=== PATIENT | male | born 1960 | race American Indian/Alaskan Native ===

== ENCOUNTER → 2017-03-07 | Outpatient (CLI) | payer MEDICARE, MEDICAID ==
[~2017-03-07] MED LIST: ASPI-515 PO; CEFD300C2 PO; CEPH-368 PO; FLEC50TA25 PO; HYDR25CA PO; INSU100V8 SQ; LEVO750P2 IV; MAGN400T26 PO; METO25TA35 PO; OXYC-302 PO; VANC1VIA3 IV; insulin
[2017-03-07 11:14] LABS: ASPARTATE AMINO TRANSFERASE 31 U/L (15-37); BLOOD UREA NITROGEN 11 mg/dL (7-18)
== END | disposition home or self-care (01) ==
LOC: STAR 08:13
PROVIDERS: ATTEND Urology
DX: Z01.818 Encounter for other preprocedural examination (principal); N21.0 Calculus in bladder
CPT/HCPCS: 36415; 80053

== ENCOUNTER 2017-03-11 11:34 | Day surgery (SDC) | payer MEDICARE, MEDICAID ==
[~2017-03-11] VITALS: Ht 182.9 cm; Wt 96.4 kg
[2017-03-11 12:13] VITALS: BP 89/62
[2017-03-11] MEDS ORDERED: LACTATED RINGERS 1,000 ML IV SCH (12:19)
[2017-03-11] MEDS ORDERED: LIDOCAINE 1%, 2ML SQ PRN (12:30)
[2017-03-11] MEDS ORDERED: MIDAZOLAM 1 MG/ML, 2ML ONE (13:33)
[2017-03-11] MEDS ORDERED: FENTANYL PF 250 MCG/5ML ONE (13:34)
[2017-03-11] MEDS ORDERED: PROPOFOL 10 MG/ML, 20ML ONE (13:49)
[2017-03-11] MEDS ORDERED: PROPOFOL 10 MG/ML, 50ML ONE (13:49)
[2017-03-11] MEDS ORDERED: ONDANSETRON 2MG/ML, 2ML ONE (13:49)
[2017-03-11] MEDS ORDERED: LABETALOL 5MG/ML, 20ML ONE (13:49)
[2017-03-11] MEDS ORDERED: hydrALAzine 20 MG/ML, 1ML ONE (13:49)
[2017-03-11] MEDS ORDERED: HYDROmorphone 1 MG/ML, 1ML IV PRN (14:30)
[2017-03-11] MEDS ORDERED: ACETAMINOPHEN 325 MG TABLET PO PRN (14:30)
[2017-03-11] MEDS ORDERED: ALBUTEROL/IPRATROPIUM 2.5MG/0.5MG, 3 ML NPPB PRN (14:30)
[2017-03-11] MEDS ORDERED: PROMETHAZINE 25 MG/ML, 1ML IV PRN (14:30)
[2017-03-11] MEDS ORDERED: OXYcodone 5 MG/5 ML ORAL.SOL UDC PO PRN (14:30)
[2017-03-11] MEDS ORDERED: ONDANSETRON 2MG/ML, 2ML IVPush PRN (14:30)
[2017-03-11] MEDS ORDERED: LABETALOL 5MG/ML, 20ML IV PRN (14:30)
[2017-03-11] MEDS ORDERED: MIDAZOLAM 1 MG/ML, 2ML IV PRN (14:30)
[2017-03-11] MEDS ORDERED: FENTANYL PF 100 MCG/2ML IV PRN (14:30)
[2017-03-11] MEDS ORDERED: MEPERIDINE/PF 25MG/0.5ML IVPush PRN (14:30)
[2017-03-11] MEDS ORDERED: hydrALAzine 20 MG/ML, 1ML IV PRN (14:30)
== END 2017-03-11 17:50 | disposition home or self-care (01) ==
LOC: OUT 11:34
PROVIDERS: ATTEND Urology
DX: N21.0 Calculus in bladder (principal); N39.0 Urinary tract infection, site not specified; N31.9 Neuromuscular dysfunction of bladder, unspecified; I48.91 Unspecified atrial fibrillation; I47.1 Supraventricular tachycardia; Z86.718 Personal history of other venous thrombosis and embolism; Z86.14 Personal history of Methicillin resistant Staphylococcus aureus infection; I10 Essential (primary) hypertension; Z90.49 Acquired absence of other specified parts of digestive tract; Z98.1 Arthrodesis status; Z84.89 Family history of other specified conditions
CPT/HCPCS: 52318; 82962; 88300; C2630; J0360; J2250; J2405; J2704; J3010; 82360; J0696

== ENCOUNTER → 2017-06-13 | Outpatient (CLI) | payer MEDICARE, MEDICAID ==
[~2017-06-13] MED LIST changes: -CEFD300C2 PO; +CEFD300C37 PO; +GADOBUTROL 10 MMOL/10 ML PFS ONE
== END | disposition home or self-care (01) ==
LOC: EDSTATUS 06-09 12:15 → RAD 13:01 → EDSTATUS 13:30
PROVIDERS: ATTEND Family Medicine
DX: L89.42 Pressure ulcer of contiguous site of back, buttock and hip, stage 2 (principal); I87.312 Chronic venous hypertension (idiopathic) with ulcer of left lower extremity; L89.622 Pressure ulcer of left heel, stage 2; L89.612 Pressure ulcer of right heel, stage 2; E11.621 Type 2 diabetes mellitus with foot ulcer; G82.51 Quadriplegia, C1-C4 complete; M81.0 Age-related osteoporosis without current pathological fracture; S63.23 Subluxation of proximal interphalangeal joint of finger; X58.XXXA Exposure to other specified factors, initial encounter; Z79.4 Long term (current) use of insulin; Y93.89 Activity, other specified; Y92.89 Other specified places as the place of occurrence of the external cause; Y99.8 Other external cause status
CPT/HCPCS: 72197; 73720; A9585

== ENCOUNTER → 2017-06-14 | Outpatient (CLI) | payer MEDICARE, MEDICAID ==
[~2017-06-14] MED LIST changes: -GADOBUTROL 10 MMOL/10 ML PFS ONE
[2017-06-14 11:07] LABS: ASPARTATE AMINO TRANSFERASE 69 U/L (15-37); BLOOD UREA NITROGEN 11 mg/dL (7-18)
== END | disposition home or self-care (01) ==
LOC: LAB 09:58
PROVIDERS: ATTEND Family Medicine
DX: L89.42 Pressure ulcer of contiguous site of back, buttock and hip, stage 2 (principal); E11.621 Type 2 diabetes mellitus with foot ulcer; G82.51 Quadriplegia, C1-C4 complete
CPT/HCPCS: 36415; 80053; 83036; 84134; 85025

== ENCOUNTER 2017-09-16 10:01 | Inpatient (IN) | payer MEDICARE, MEDICAID ==
[~2017-09-16] VITALS: Ht 182.9 cm; Wt 104.4 kg
[2017-09-16] MEDS ORDERED: SODIUM CHLORIDE 0.9% 1,000ML IVBOLUS ONE ×2 (10:30→11:00)
[2017-09-16] MEDS ORDERED: ACETAMINOPHEN 500 MG TABLET PO ONE (10:30)
[2017-09-16 10:47] LABS: HEMATOCRIT 41.9 % (39.2-51.8); HEMOGLOBIN 14.3 g/dL (13.7-18.0); WHITE BLOOD COUNT 19.4 x10^3/uL (3.4-10)
[2017-09-16] MEDS ORDERED: ACETAMINOPHEN 500 MG TABLET ONE (10:52)
[2017-09-16] MEDS ORDERED: ONDANSETRON 2MG/ML, 2ML ONE (10:52)
[2017-09-16 11:00] LABS: ASPARTATE AMINO TRANSFERASE 42 U/L (15-37); BLOOD UREA NITROGEN 12 mg/dL (7-18)
[2017-09-16 11:10] LABS: PATH.CAST-FLAG NOT PRESENT; SPERM-FLAG NOT PRESENT; SRC-FLAG NOT PRESENT; XTAL-FLAG NOT PRESENT; YLC-FLAG NOT PRESENT
[2017-09-16] MEDS ORDERED: CEFTRIAXONE PMX 1GM/50ML 50 ML ONE (11:59)
[2017-09-16] MEDS ORDERED: ONDANSETRON 2MG/ML, 2ML IVPush ONE (12:00)
[2017-09-16] MEDS ORDERED: CEFTRIAXONE PMX 1GM/50ML 50 ML IV ONE (12:00)
[2017-09-16 15:42] VITALS: BP 151/122
[2017-09-16] MEDS ORDERED: SODIUM CHLORIDE 0.9% 1,000 ML IV SCH (16:30)
[2017-09-16] MEDS ORDERED: hydrALAzine 20 MG/ML, 1ML IVPush PRN (19:30)
[2017-09-16] MEDS ORDERED: morphine SULFATE 10 MG/ML, 1ML IVPush PRN (19:30)
[2017-09-16] MEDS ORDERED: TEMAZEPAM 15 MG CAPSULE PO PRN (19:30)
[2017-09-16] MEDS ORDERED: OXYcodone IR 5MG TABLET PO PRN (19:30)
[2017-09-16 19:48] VITALS: BP 129/63
[2017-09-16] MEDS ORDERED: ACETAMINOPHEN 325 MG SUPP PR PRN (20:30)
[2017-09-16] MEDS: ONDANSETRON 2MG/ML, 2ML IVPush PRN (22:04)
[2017-09-16] MEDS: FLECAINIDE 50MG TABLET PO SCH (22:05)
[2017-09-16] MEDS: ENOXAPARIN 40 MG/0.4 ML SQ SCH (22:05)
[2017-09-16] MEDS: SODIUM CHLORIDE 0.9% 1,000 ML IV SCH (22:06)
[2017-09-16] MEDS: INSULIN ASPART 100 UNITS/ML, PEN SQ-INSULIN SCH (22:20)
[2017-09-17] MEDS: CEFTRIAXONE PMX 2GM/50ML 50 ML IV SCH (00:15)
[2017-09-17 01:57] VITALS: BP 80/41
[2017-09-17] MEDS: ONDANSETRON 2MG/ML, 2ML IVPush PRN ×3 (04:43→21:17)
[2017-09-17 05:53] LABS: HEMATOCRIT 35.9 % (39.2-51.8); HEMOGLOBIN 12.2 g/dL (13.7-18.0); WHITE BLOOD COUNT 14.3 x10^3/uL (3.4-10)
[2017-09-17 06:13] LABS: ASPARTATE AMINO TRANSFERASE 32 U/L (15-37); BLOOD UREA NITROGEN 13 mg/dL (7-18)
[2017-09-17 06:45] VITALS: BP 117/70
[2017-09-17] MEDS: SODIUM CHLORIDE 0.9% 1,000 ML IV SCH (07:55)
[2017-09-17] MEDS: INSULIN ASPART 100 UNITS/ML, PEN SQ-INSULIN SCH ×4 (08:23→21:17)
[2017-09-17] MEDS: FLECAINIDE 50MG TABLET PO SCH ×2 (08:23→21:17)
[2017-09-17] MEDS ORDERED: POTASSIUM CHLORIDE 20 MEQ TAB.ER.PRT PO ONE (08:30)
[2017-09-17] MEDS ORDERED: MAGNESIUM SULFATE PMX 2GM/50ML 50 ML IV ONE (08:30)
[2017-09-17] MEDS ORDERED: POTASSIUM PHOSPHATE 44 MEQ in SODIUM CHLORIDE 0.9% 500 ML IV ONE (08:30)
[2017-09-17 09:31] LABS: BLOOD UREA NITROGEN 13 mg/dL (7-18)
[2017-09-17] MEDS ORDERED: POLYETHYLENE GLYCOL 17 GM PACKET PO SCH (10:00)
[2017-09-17] MEDS: SODIUM BICARBONATE 8.4% 100 MEQ in DEXTROSE 5% 1,000 ML IV SCH (11:59)
[2017-09-17] MEDS: LACTULOSE 10 GM/15 ML UDC PO SCH ×2 (11:59→21:16)
[2017-09-17 12:35] VITALS: BP 111/58
[2017-09-17] MEDS: SIMETHICONE 125 MG CHEW TAB PO SCH ×2 (16:29→21:16)
[2017-09-17] MEDS ORDERED: hydrALAzine 20 MG/ML, 1ML IVPush PRN (20:30)
[2017-09-17] MEDS ORDERED: morphine SULFATE 10 MG/ML, 1ML IVPush PRN (20:30)
[2017-09-17] MEDS ORDERED: TEMAZEPAM 15 MG CAPSULE PO PRN (20:30)
[2017-09-17 20:36] VITALS: BP 92/42
[2017-09-17] MEDS: ENOXAPARIN 40 MG/0.4 ML SQ SCH (21:16)
[2017-09-17] MEDS: OXYcodone IR 5MG TABLET PO PRN (21:17)
[2017-09-18] MEDS: SODIUM BICARBONATE 8.4% 100 MEQ in DEXTROSE 5% 1,000 ML IV SCH ×2 (00:22→07:00)
[2017-09-18] MEDS: CEFTRIAXONE PMX 2GM/50ML 50 ML IV SCH (00:22)
[2017-09-18 00:41] VITALS: BP 107/49
[2017-09-18] MEDS: OXYcodone IR 5MG TABLET PO PRN (02:03)
[2017-09-18 06:21] LABS: HEMATOCRIT 31.4 % (39.2-51.8); HEMOGLOBIN 10.9 g/dL (13.7-18.0); WHITE BLOOD COUNT 12.7 x10^3/uL (3.4-10)
[2017-09-18 07:11] LABS: BLOOD UREA NITROGEN 11 mg/dL (7-18)
[2017-09-18 08:02] VITALS: BP 100/63
[2017-09-18] MEDS: POLYETHYLENE GLYCOL 17 GM PACKET PO SCH (08:41)
[2017-09-18] MEDS: LACTULOSE 10 GM/15 ML UDC PO SCH ×2 (08:42→21:03)
[2017-09-18] MEDS: FLECAINIDE 50MG TABLET PO SCH ×2 (08:42→21:05)
[2017-09-18] MEDS: SIMETHICONE 125 MG CHEW TAB PO SCH ×4 (08:42→21:05)
[2017-09-18] MEDS: INSULIN ASPART 100 UNITS/ML, PEN SQ-INSULIN SCH ×4 (08:44→20:48)
[2017-09-18] MEDS ORDERED: SODIUM PHOSPHATE 20 MMOL in SODIUM CHLORIDE 0.9% 500 ML IV ONE (10:30)
[2017-09-18] MEDS ORDERED: POTASSIUM CHLORIDE 20 MEQ TAB.ER.PRT PO ONE (10:30)
[2017-09-18] MEDS: NS + 20MEQ KCL 1,000 ML IV SCH (12:14)
[2017-09-18 13:55] VITALS: BP 109/71
[2017-09-18 20:08] VITALS: BP 159/85
[2017-09-18] MEDS: ENOXAPARIN 40 MG/0.4 ML SQ SCH (21:05)
[2017-09-19] MEDS: OXYcodone IR 5MG TABLET PO PRN ×2 (01:01→21:20)
[2017-09-19] MEDS: NS + 20MEQ KCL 1,000 ML IV SCH ×2 (01:01→16:16)
[2017-09-19 03:37] VITALS: BP 118/72
[2017-09-19] MEDS: INSULIN ASPART 100 UNITS/ML, PEN SQ-INSULIN SCH ×4 (07:22→21:20)
[2017-09-19] MEDS: FLECAINIDE 50MG TABLET PO SCH ×2 (07:23→21:19)
[2017-09-19] MEDS: POLYETHYLENE GLYCOL 17 GM PACKET PO SCH (07:23)
[2017-09-19] MEDS: LACTULOSE 10 GM/15 ML UDC PO SCH ×2 (07:23→21:19)
[2017-09-19] MEDS: SIMETHICONE 125 MG CHEW TAB PO SCH ×4 (07:23→21:19)
[2017-09-19 07:25] VITALS: BP 125/82
[2017-09-19 08:41] LABS: BLOOD UREA NITROGEN 6 mg/dL (7-18)
[2017-09-19] MEDS: LEVOFLOXACIN/PMX 750MG/150ML 150 ML IV SCH (10:05)
[2017-09-19 16:40] VITALS: BP 107/74
[2017-09-19 18:58] VITALS: BP 112/78
[2017-09-19] MEDS: ENOXAPARIN 40 MG/0.4 ML SQ SCH (21:20)
[2017-09-20 01:12] VITALS: BP 131/75
[2017-09-20] MEDS: NS + 20MEQ KCL 1,000 ML IV SCH (05:36)
[2017-09-20 05:48] LABS: BLOOD UREA NITROGEN 7 mg/dL (7-18)
[2017-09-20 05:51] LABS: HEMATOCRIT 36.9 % (39.2-51.8); HEMOGLOBIN 12.6 g/dL (13.7-18.0); WHITE BLOOD COUNT 9.3 x10^3/uL (3.4-10)
[2017-09-20] MEDS: SIMETHICONE 125 MG CHEW TAB PO SCH ×2 (07:00→11:00)
[2017-09-20] MEDS: INSULIN ASPART 100 UNITS/ML, PEN SQ-INSULIN SCH ×2 (07:00→11:00)
[2017-09-20 08:10] VITALS: BP 160/83
[2017-09-20] MEDS: LACTULOSE 10 GM/15 ML UDC PO SCH (08:17)
[2017-09-20] MEDS: POLYETHYLENE GLYCOL 17 GM PACKET PO SCH (08:17)
[2017-09-20] MEDS: FLECAINIDE 50MG TABLET PO SCH (09:29)
[2017-09-20] MEDS: LEVOFLOXACIN/PMX 750MG/150ML 150 ML IV SCH (09:29)
[2017-09-20] MEDS ORDERED: LACT10SO5 PO (11:25)
[2017-09-20] MEDS ORDERED: LEVO750T26 PO (11:25)
[2017-09-20] MEDS ORDERED: SIME125T10 PO (11:25)
[2017-09-20] MEDS ORDERED: FLU VACC QS2017-18 (36MOS+) UP/PF 0.5 ML IM-VACC ONE (13:30)
[2017-09-20] MEDS ORDERED: PNEUMOCOCCAL 23 VACCINE IM-VACC ONE (14:30)
== END 2017-09-20 15:28 | disposition home or self-care (01) | DRG 698 ==
LOC: EDSEX 10:01 → ED 12:17 → EDIP 12:18 → MERGE 12:29 → ED 12:29 → 4WST 15:22
PROVIDERS: ADMIT Internal Medicine; ATTEND Hospitalist
PROC: 0T9B70Z Drainage of Bladder with Drainage Device, Via Natural or Artificial Opening (ICD-10-PCS; principal; 2017-09-16)
DX: T83.518A Infection and inflammatory reaction due to other urinary catheter, initial encounter (principal); A41.52 Sepsis due to Pseudomonas; R65.21 Severe sepsis with septic shock; G82.50 Quadriplegia, unspecified; L89.159 Pressure ulcer of sacral region, unspecified stage; N39.0 Urinary tract infection, site not specified; E11.65 Type 2 diabetes mellitus with hyperglycemia; E83.39 Other disorders of phosphorus metabolism; E83.42 Hypomagnesemia; I10 Essential (primary) hypertension; I48.0 Paroxysmal atrial fibrillation; K59.00 Constipation, unspecified; B96.1 Klebsiella pneumoniae [K. pneumoniae] as the cause of diseases classified elsewhere; N31.9 Neuromuscular dysfunction of bladder, unspecified; Y84.6 Urinary catheterization as the cause of abnormal reaction of the patient, or of later complication, without mention of misadventure at the time of the procedure; Z86.14 Personal history of Methicillin resistant Staphylococcus aureus infection; Z90.49 Acquired absence of other specified parts of digestive tract; Z93.2 Ileostomy status; Z93.3 Colostomy status; Z99.3 Dependence on wheelchair; Z87.828 Personal history of other (healed) physical injury and trauma; Z23 Encounter for immunization; Z98.1 Arthrodesis status; Z88.0 Allergy status to penicillin
CPT/HCPCS: 36415; 71010; 74000; 80048; 80053; 81001; 82040; 82962; 83036; 83605; 83735; 84100; 84145; 85025; 87040; 87077; 87086; 87186; 90686; 90732; 93005; 96365; 96375; J0696; J1650; J1815; J1956; J2405; J3480; J7070; J2270; J3475; J7030; J7040

== ENCOUNTER 2017-09-22 22:42 | Inpatient (IN) | payer MEDICARE, MEDICAID ==
[~2017-09-22] VITALS: Ht 185.4 cm; Wt 92.6 kg
[~2017-09-22 22:42] MED LIST changes: +LACT10SO5 PO; +LEVO750T26 PO; +SIME125T10 PO
[2017-09-22] MEDS ORDERED: SODIUM CHLORIDE 0.9% 1,000ML IVBOLUS ONE ×2 (23:00→23:30)
[2017-09-22 23:35] LABS: HEMATOCRIT 45.7 % (39.2-51.8); HEMOGLOBIN 15.3 g/dL (13.7-18.0)
[2017-09-22 23:42] LABS: ASPARTATE AMINO TRANSFERASE 56 U/L (15-37); BLOOD UREA NITROGEN 14 mg/dL (7-18)
[2017-09-23 00:02] LABS: PATH.CAST-FLAG NOT PRESENT; SPERM-FLAG NOT PRESENT; SRC-FLAG NOT PRESENT; XTAL-FLAG NOT PRESENT; YLC-FLAG NOT PRESENT
[2017-09-23] MEDS ORDERED: AZITHROMYCIN 500 MG in SODIUM CHLORIDE 0.9% 250 ML IV ONE (02:30)
[2017-09-23] MEDS ORDERED: CEFTRIAXONE PMX 1GM/50ML 50 ML IV ONE (02:30)
[2017-09-23] MEDS ORDERED: CEFTRIAXONE PMX 1GM/50ML 50 ML ONE (03:06)
[2017-09-23] MEDS ORDERED: DEXTROSE 4 GM TAB.CHEW PO PRN (05:30)
[2017-09-23] MEDS ORDERED: BISACODYL 10 MG SUPP PR PRN (05:30)
[2017-09-23] MEDS ORDERED: VANCOMYCIN PER PHARMACY MC PRN (05:30)
[2017-09-23] MEDS ORDERED: LACTULOSE 10 GM/15 ML UDC PO PRN (05:30)
[2017-09-23] MEDS ORDERED: MAGNESIUM SULFATE PMX 2GM/50ML 50 ML IV ONE (05:30)
[2017-09-23] MEDS ORDERED: GLUCAGON 1 MG IM PRN (05:30)
[2017-09-23] MEDS ORDERED: POLYETHYLENE GLYCOL 17 GM PACKET PO PRN (05:30)
[2017-09-23] MEDS ORDERED: SIMETHICONE 125 MG CHEW TAB PO PRN (05:30)
[2017-09-23] MEDS ORDERED: DOCUSATE 100 MG CAPSULE PO PRN (05:30)
[2017-09-23] MEDS ORDERED: ACETAMINOPHEN 325 MG TABLET PO PRN (05:30)
[2017-09-23] MEDS ORDERED: PROMETHAZINE 25 MG/ML, 1ML IM PRN (05:30)
[2017-09-23] MEDS ORDERED: DEXTROSE 50%, 50ML SYRINGE IVPush PRN (05:30)
[2017-09-23] MEDS ORDERED: PHARMACOKINETIC CONSULTATION MC ONE (06:00)
[2017-09-23] MEDS ORDERED: PHARMACOKINETIC MONITORING MC PRN (06:00)
[2017-09-23 06:11] VITALS: BP 95/68
[2017-09-23 06:31] LABS: HEMATOCRIT 39.4 % (39.2-51.8); HEMOGLOBIN 13.3 g/dL (13.7-18.0); WHITE BLOOD COUNT 10.3 x10^3/uL (3.4-10)
[2017-09-23 06:36] LABS: ASPARTATE AMINO TRANSFERASE 38 U/L (15-37); BLOOD UREA NITROGEN 11 mg/dL (7-18)
[2017-09-23] MEDS: INSULIN ASPART 100 UNITS/ML, PEN SQ-INSULIN SCH ×4 (07:00→20:34)
[2017-09-23 07:27] VITALS: BP 126/75
[2017-09-23] MEDS: SENNA/DOCUSATE TABLET PO SCH (09:00)
[2017-09-23] MEDS: SODIUM CHLORIDE FLUSH 10ML SYR IVF SCH ×2 (09:00→20:33)
[2017-09-23] MEDS: AZTREONAM 2 GM in DEXTROSE 5% 100 ML IV SCH ×2 (09:05→17:00)
[2017-09-23] MEDS: SODIUM CHLORIDE 0.9% 1,000 ML IV SCH ×3 (09:05→20:33)
[2017-09-23] MEDS: LACTOBACILLUS CHEW TABLET PO SCH ×3 (09:16→20:33)
[2017-09-23] MEDS: ENOXAPARIN 40 MG/0.4 ML SQ SCH (09:17)
[2017-09-23] MEDS: FLECAINIDE 50MG TABLET PO SCH ×2 (09:17→20:33)
[2017-09-23] MEDS: VANCOMYCIN 1,900 MG in SODIUM CHLORIDE 0.9% 250 ML IV SCH ×2 (10:01→23:26)
[2017-09-23 12:43] VITALS: BP 118/79
[2017-09-23 18:46] VITALS: BP 97/63
[2017-09-24] MEDS: AZTREONAM 2 GM in DEXTROSE 5% 100 ML IV SCH ×3 (01:22→17:31)
[2017-09-24 01:57] VITALS: BP 103/65
[2017-09-24] MEDS: SODIUM CHLORIDE 0.9% 1,000 ML IV SCH ×2 (05:30→11:23)
[2017-09-24 06:08] LABS: HEMATOCRIT 35.2 % (39.2-51.8); HEMOGLOBIN 11.8 g/dL (13.7-18.0)
[2017-09-24 06:17] LABS: ASPARTATE AMINO TRANSFERASE 36 U/L (15-37); BLOOD UREA NITROGEN 10 mg/dL (7-18)
[2017-09-24 06:53] VITALS: BP 150/96
[2017-09-24] MEDS: INSULIN ASPART 100 UNITS/ML, PEN SQ-INSULIN SCH ×4 (07:00→21:49)
[2017-09-24] MEDS: ENOXAPARIN 40 MG/0.4 ML SQ SCH (08:56)
[2017-09-24] MEDS: SENNA/DOCUSATE TABLET PO SCH (08:57)
[2017-09-24] MEDS: POTASSIUM CHLORIDE 20 MEQ TAB.ER.PRT PO SCH ×2 (08:57→16:35)
[2017-09-24] MEDS: FLECAINIDE 50MG TABLET PO SCH ×2 (08:57→21:47)
[2017-09-24] MEDS: LACTOBACILLUS CHEW TABLET PO SCH ×3 (08:57→21:47)
[2017-09-24] MEDS: SODIUM CHLORIDE FLUSH 10ML SYR IVF SCH ×2 (09:00→21:00)
[2017-09-24] MEDS: VANCOMYCIN 1,900 MG in SODIUM CHLORIDE 0.9% 250 ML IV SCH ×2 (10:03→21:49)
[2017-09-24 12:59] VITALS: BP 149/95
[2017-09-24 19:41] VITALS: BP 97/65
[2017-09-25 01:41] VITALS: BP 121/77
[2017-09-25] MEDS: AZTREONAM 2 GM in DEXTROSE 5% 100 ML IV SCH ×2 (02:02→09:21)
[2017-09-25] MEDS ORDERED: ACID1TAB7 PO (07:41)
[2017-09-25 08:04] VITALS: BP 146/85
[2017-09-25] MEDS: INSULIN ASPART 100 UNITS/ML, PEN SQ-INSULIN SCH (09:00)
[2017-09-25] MEDS: SENNA/DOCUSATE TABLET PO SCH (09:21)
[2017-09-25] MEDS: POTASSIUM CHLORIDE 20 MEQ TAB.ER.PRT PO SCH (09:21)
[2017-09-25] MEDS: FLECAINIDE 50MG TABLET PO SCH (09:21)
[2017-09-25] MEDS: LACTOBACILLUS CHEW TABLET PO SCH (09:21)
[2017-09-25] MEDS: SODIUM CHLORIDE FLUSH 10ML SYR IVF SCH (09:23)
[2017-09-25] MEDS: ENOXAPARIN 40 MG/0.4 ML SQ SCH (09:30)
[2017-09-25] MEDS: VANCOMYCIN 1,900 MG in SODIUM CHLORIDE 0.9% 250 ML IV SCH (10:39)
== END 2017-09-25 14:23 | disposition home or self-care (01) | DRG 871 ==
LOC: ED 23:02 → EDIP 09-23 02:29 → 4WST 09-23 05:27
PROVIDERS: ADMIT Internal Medicine; ATTEND Internal Medicine
DX: A41.52 Sepsis due to Pseudomonas (principal); J15.9 Unspecified bacterial pneumonia; G82.50 Quadriplegia, unspecified; E43 Unspecified severe protein-calorie malnutrition; E87.2 Acidosis; L89.159 Pressure ulcer of sacral region, unspecified stage; E11.9 Type 2 diabetes mellitus without complications; D64.9 Anemia, unspecified; J98.11 Atelectasis; N39.0 Urinary tract infection, site not specified; D75.89 Other specified diseases of blood and blood-forming organs; K59.09 Other constipation; E86.0 Dehydration; N31.9 Neuromuscular dysfunction of bladder, unspecified; B96.1 Klebsiella pneumoniae [K. pneumoniae] as the cause of diseases classified elsewhere; I10 Essential (primary) hypertension; I45.81 Long QT syndrome; I48.2 Chronic atrial fibrillation; R62.7 Adult failure to thrive; Z68.26 Body mass index [BMI] 26.0-26.9, adult; Z79.4 Long term (current) use of insulin; Z86.14 Personal history of Methicillin resistant Staphylococcus aureus infection; Z99.3 Dependence on wheelchair; Z93.2 Ileostomy status; Z93.3 Colostomy status; Z91.14 Patient's other noncompliance with medication regimen; Z90.49 Acquired absence of other specified parts of digestive tract; Z98.1 Arthrodesis status; Z88.0 Allergy status to penicillin
CPT/HCPCS: 36415; 71010; 71275; 74177; 80053; 81001; 82962; 83605; 83735; 84100; 84145; 84443; 85025; 85610; 87040; 87086; 93005; 93306; 96361; 96365; J0456; J0696; J1650; J1815; J3370; J3475; J7030; J7050

== ENCOUNTER → 2018-06-02 | Outpatient (CLI) | payer MEDICARE, MEDICAID ==
[~2018-06-02] MED LIST changes: +ACID1TAB7 PO
== END | disposition home or self-care (01) ==
LOC: RAD 12:25
PROVIDERS: ATTEND Clinical Nurse Specialist Family Health
DX: E11.622 Type 2 diabetes mellitus with other skin ulcer (principal); L89.324 Pressure ulcer of left buttock, stage 4; L89.43 Pressure ulcer of contiguous site of back, buttock and hip, stage 3; G82.51 Quadriplegia, C1-C4 complete
CPT/HCPCS: 72195

== ENCOUNTER 2018-06-14 13:35 | Inpatient (IN) | payer MEDICARE, MEDICAID ==
[~2018-06-14] VITALS: Ht 182.9 cm; Wt 95.5 kg
[2018-06-14] MEDS ORDERED: SODIUM CHLORIDE 0.9% 1,000ML IVBOLUS ONE ×2 (14:30→15:30)
[2018-06-14 14:44] LABS: BASOPHILS # (AUTO) 0.04 x10^3/uL (0-0.1); BASOPHILS % (AUTO) 0 % (0-1); EOSINOPHILS # (AUTO) 0.27 x10^3/uL (0-0.4); EOSINOPHILS % (AUTO) 3 % (1-7); LYMPHOCYTES # (AUTO) 2.32 x10^3/uL (1-3.4); LYMPHOCYTES % (AUTO) 21 % (22-44); MD NO; MEAN CORPUSCULAR HEMOGLOBIN 28.9 pg (27.5-34.5); MEAN PLATELET VOLUME 7.3 fL (7.4-10.4); MONOCYTES # (AUTO) 0.53 x10^3/uL (0.2-0.8); MONOCYTES % (AUTO) 5 % (2-9); NEUTROPHILS # (AUTO) 7.83 x10^3/uL (1.8-6.8); NEUTROPHILS % (AUTO) 71 % (42-75); PLATELET COUNT 278 x10^3/uL (130-400); RED BLOOD COUNT 5.07 x10^6/uL (4.38-5.82); RED CELL DISTRIBUTION WIDTH 15.6 % (9.4-14.8)
[2018-06-14 14:54] LABS: ALANINE AMINOTRANSFERASE 53 U/L (12-78); ALBUMIN 3.4 g/dL (3.4-5.0); ANION GAP 11 mmol/L (5-15); CHLORIDE 100 mmol/L (98-107); CREATININE 0.64 mg/dL (0.7-1.3)
[2018-06-14 14:56] LABS: ALKALINE PHOSPHATASE 145 U/L (45-117); BILIRUBIN,TOTAL 1.1 mg/dL (0.2-1.0); TOTAL PROTEIN 8.7 g/dL (6.4-8.2)
[2018-06-14] MEDS ORDERED: ONDANSETRON 2MG/ML, 2ML ONE (15:21)
[2018-06-14] MEDS ORDERED: CEFTRIAXONE PMX 1GM/50ML 50 ML ONE (15:26)
[2018-06-14] MEDS ORDERED: SODIUM CHLORIDE FLUSH 10ML SYR IVF ONE (15:30)
[2018-06-14] MEDS ORDERED: CEFTRIAXONE 1,000 MG in SODIUM CHLORIDE 0.9% 50 ML IVPB ONE (15:30)
[2018-06-14] MEDS ORDERED: ONDANSETRON 2MG/ML, 2ML IVPush ONE (15:30)
[2018-06-14] MEDS ORDERED: VANCOMYCIN PER PHARMACY MC PRN (16:00)
[2018-06-14] MEDS ORDERED: VANCOMYCIN 2,000 MG in SODIUM CHLORIDE 0.9% 500 ML IV ONE (16:00)
[2018-06-14 16:15] LABS: CULTURE INDICATED? YES; MICROSCOPIC INDICATED
[2018-06-14] MEDS ORDERED: INSU100V8 SQ (16:41)
[2018-06-14] MEDS ORDERED: INSU100C SQ-INSULIN (16:41)
[2018-06-14] MEDS ORDERED: ONDANSETRON 2MG/ML, 2ML IVPush PRN (17:00)
[2018-06-14] MEDS ORDERED: SIMETHICONE 125 MG CHEW TAB PO PRN (17:00)
[2018-06-14] MEDS: SODIUM CHLORIDE 0.9% 1,000 ML IV SCH (18:34)
[2018-06-14] MEDS: LACTOBACILLUS CHEW TABLET PO SCH ×2 (18:34→20:38)
[2018-06-14] MEDS: ENOXAPARIN 40 MG/0.4 ML SQ SCH (18:34)
[2018-06-14 19:32] VITALS: BP 96/63
[2018-06-14] MEDS: ACETAMINOPHEN 325 MG TABLET PO PRN (20:38)
[2018-06-14] MEDS: FLECAINIDE 50MG TABLET PO SCH (20:38)
[2018-06-14] MEDS: INSULIN GLARGINE 100 UNITS/ML, PEN SQ-INSULIN SCH (22:10)
[2018-06-14] MEDS: INSULIN LISPRO 100 UNITS/ML, PEN SQ-INSULIN SCH (22:11)
[2018-06-14 22:13] VITALS: BP 96/63
[2018-06-15 00:20] LABS: CLOSTRIDIUM DIFFICILE ANTIGEN NEGATIVE; CLOSTRIDIUM DIFFICILE TOXIN NEGATIVE (Negative)
[2018-06-15 00:54] VITALS: BP 95/60
[2018-06-15] MEDS: SODIUM CHLORIDE 0.9% 1,000 ML IV SCH ×4 (01:03→20:15)
[2018-06-15 06:40] LABS: ALANINE AMINOTRANSFERASE 36 U/L (12-78); ALBUMIN 2.6 g/dL (3.4-5.0); ANION GAP 8 mmol/L (5-15); CALCIUM 7.6 mg/dL (8.5-10.1); CHLORIDE 116 mmol/L (98-107); CREATININE 0.36 mg/dL (0.7-1.3)
[2018-06-15 06:43] VITALS: BP 108/72
[2018-06-15 06:43] LABS: ALKALINE PHOSPHATASE 114 U/L (45-117); BILIRUBIN,TOTAL 0.5 mg/dL (0.2-1.0); TOTAL PROTEIN 6.6 g/dL (6.4-8.2)
[2018-06-15 07:43] LABS: BASOPHILS # (AUTO) 0.04 x10^3/uL (0-0.1); BASOPHILS % (AUTO) 1 % (0-1); EOSINOPHILS # (AUTO) 0.25 x10^3/uL (0-0.4); EOSINOPHILS % (AUTO) 3 % (1-7); LYMPHOCYTES # (AUTO) 1.88 x10^3/uL (1-3.4); LYMPHOCYTES % (AUTO) 25 % (22-44); MD NO; MEAN CORPUSCULAR HEMOGLOBIN 28.7 pg (27.5-34.5); MEAN CORPUSCULAR HGB CONC 33.6 g/dL (33.2-36.2); MEAN CORPUSCULAR VOLUME 85.4 fL (81-97); MEAN PLATELET VOLUME 7.7 fL (7.4-10.4); MONOCYTES # (AUTO) 0.43 x10^3/uL (0.2-0.8); MONOCYTES % (AUTO) 6 % (2-9); NEUTROPHILS # (AUTO) 4.84 x10^3/uL (1.8-6.8); NEUTROPHILS % (AUTO) 65 % (42-75); PLATELET COUNT 203 x10^3/uL (130-400); RED BLOOD COUNT 4.42 x10^6/uL (4.38-5.82)
[2018-06-15] MEDS: INSULIN LISPRO 100 UNITS/ML, PEN SQ-INSULIN SCH ×4 (08:39→20:20)
[2018-06-15] MEDS: CEFTRIAXONE 1,000 MG in SODIUM CHLORIDE 0.9% 50 ML IV SCH (08:40)
[2018-06-15] MEDS: FLECAINIDE 50MG TABLET PO SCH ×2 (08:40→20:10)
[2018-06-15] MEDS: LACTOBACILLUS CHEW TABLET PO SCH ×3 (08:40→20:10)
[2018-06-15 13:35] VITALS: BP 131/84
[2018-06-15] MEDS: ENOXAPARIN 40 MG/0.4 ML SQ SCH (17:49)
[2018-06-15 20:00] VITALS: BP 155/96
[2018-06-15] MEDS: ACETAMINOPHEN 325 MG TABLET PO PRN (20:10)
[2018-06-15] MEDS: INSULIN GLARGINE 100 UNITS/ML, PEN SQ-INSULIN SCH (20:21)
[2018-06-16 01:18] VITALS: BP 131/81
[2018-06-16] MEDS: SODIUM CHLORIDE 0.9% 1,000 ML IV SCH (05:22)
[2018-06-16] MEDS: INSULIN LISPRO 100 UNITS/ML, PEN SQ-INSULIN SCH (07:00)
[2018-06-16 07:21] VITALS: BP 137/77
[2018-06-16] MEDS: FLECAINIDE 50MG TABLET PO SCH (09:01)
[2018-06-16] MEDS: CEFTRIAXONE 1,000 MG in SODIUM CHLORIDE 0.9% 50 ML IV SCH (09:01)
[2018-06-16] MEDS: LACTOBACILLUS CHEW TABLET PO SCH (09:01)
[2018-06-16] MEDS ORDERED: CIPR500T87 PO (09:17)
== END 2018-06-16 10:59 | disposition home health service (06) | DRG 871 ==
LOC: ED 15:48 → EDIP 16:28 → 3NE 17:42
PROVIDERS: ADMIT Hospitalist; ATTEND Hospitalist
PROC: 0T9B70Z Drainage of Bladder with Drainage Device, Via Natural or Artificial Opening (ICD-10-PCS; principal; 2018-06-14)
DX: A41.9 Sepsis, unspecified organism (principal); R53.2 Functional quadriplegia; E43 Unspecified severe protein-calorie malnutrition; T83.511A Infection and inflammatory reaction due to indwelling urethral catheter, initial encounter; D63.8 Anemia in other chronic diseases classified elsewhere; N31.9 Neuromuscular dysfunction of bladder, unspecified; E86.9 Volume depletion, unspecified; I48.91 Unspecified atrial fibrillation; Y84.6 Urinary catheterization as the cause of abnormal reaction of the patient, or of later complication, without mention of misadventure at the time of the procedure; E11.9 Type 2 diabetes mellitus without complications; I10 Essential (primary) hypertension; L89.159 Pressure ulcer of sacral region, unspecified stage; N30.90 Cystitis, unspecified without hematuria; R65.20 Severe sepsis without septic shock; Z93.3 Colostomy status; Z87.891 Personal history of nicotine dependence; Z99.3 Dependence on wheelchair; Y92.89 Other specified places as the place of occurrence of the external cause; Z79.4 Long term (current) use of insulin; Z86.14 Personal history of Methicillin resistant Staphylococcus aureus infection; Z98.1 Arthrodesis status; Z88.0 Allergy status to penicillin; Z68.28 Body mass index [BMI] 28.0-28.9, adult
CPT/HCPCS: 36415; 71045; 80053; 81001; 82962; 83605; 83735; 84100; 85025; 87040; 87046; 87070; 87077; 87086; 87186; 87205; 87324; 87427; 93005; 96361; 96365; 96367; 96375; 99291; J0696; J1650; J2405; J3370; J1815; J7030; J7040

== ENCOUNTER 2019-01-16 11:02 | Inpatient (IN) | payer MEDICARE, MEDICAID ==
[~2019-01-16] VITALS: Ht 182.9 cm; Wt 88.7 kg
[~2019-01-16 11:02] MED LIST changes: +ACET325T14 PO; +APIX5TAB PO; +CEFP200T PO; +CIPR500T87 PO; +DOCU-131 PO; +INSU100C SQ-INSULIN; +INSU100I11 SQ-INSULIN; +INSU100I13 SQ-INSULIN; +POLY17PO5 PO
[2019-01-16] MEDS ORDERED: PLEASE ENTER HEIGHT AND WEIGHT MC SCH (11:30)
[2019-01-16] MEDS ORDERED: SODIUM CHLORIDE FLUSH 10ML SYR IVF ONE ×2 (11:30→14:00)
--- NOTE | 2019-01-16 12:00 | NUR ---
PT RESTING IN BED, WILL CLAMP SUPRA PUBIC CATH AND SEND URINE. WOUND VAC IN PLACE WITH BATTERY UNTIL THIS EVENING CONT TO MEET NURSING NEEDS NEEDED
[2019-01-16 12:03] LABS: BASOPHILS # (AUTO) 0.06 x10^3/uL (0-0.1); BASOPHILS % (AUTO) 1 % (0-1); EOSINOPHILS % (AUTO) 5 % (1-7); LYMPHOCYTES # (AUTO) 1.68 x10^3/uL (1-3.4); LYMPHOCYTES % (AUTO) 19 % (22-44); MD NO; MEAN CORPUSCULAR HEMOGLOBIN 27.8 pg (27.5-34.5); MEAN CORPUSCULAR HGB CONC 33.7 g/dL (33.2-36.2); MEAN CORPUSCULAR VOLUME 82.5 fL (81-97); MEAN PLATELET VOLUME 7.1 fL (7.4-10.4); MONOCYTES # (AUTO) 0.43 x10^3/uL (0.2-0.8); MONOCYTES % (AUTO) 5 % (2-9); NEUTROPHILS # (AUTO) 6.33 x10^3/uL (1.8-6.8); NEUTROPHILS % (AUTO) 71 % (42-75); PLATELET COUNT 393 x10^3/uL (130-400); RED BLOOD COUNT 4.43 x10^6/uL (4.38-5.82); RED CELL DISTRIBUTION WIDTH 15.3 % (9.4-14.8)
[2019-01-16 12:05] LABS: ALANINE AMINOTRANSFERASE 36 U/L (12-78); ALBUMIN 2.9 g/dL (3.4-5.0); ANION GAP 7 mmol/L (5-15); CALCIUM 8.7 mg/dL (8.5-10.1); CHLORIDE 110 mmol/L (98-107); CREATININE 0.45 mg/dL (0.7-1.3)
[2019-01-16 12:07] LABS: ALKALINE PHOSPHATASE 93 U/L (45-117); BILIRUBIN,TOTAL 0.3 mg/dL (0.2-1.0)
--- NOTE | 2019-01-16 12:59 | NUR ---
RECEIVED REPORT FROM DARRIN ROY
[2019-01-16 13:07] LABS: CULTURE INDICATED? YES; MICROSCOPIC INDICATED
[2019-01-16] MEDS ORDERED: ONDANSETRON ODT 4 MG PO PRN (14:30)
[2019-01-16] MEDS ORDERED: LABETALOL 5MG/ML, 20ML IV PRN (14:30)
[2019-01-16] MEDS ORDERED: ONDANSETRON 2MG/ML, 2ML IVPush PRN (14:30)
[2019-01-16] MEDS ORDERED: morphine SULFATE 10 MG/ML, 1ML IVPush PRN (14:30)
--- NOTE | 2019-01-16 14:34 | NUR ---
MULTIPLE ATTEMPTS FOR IV INSERTION, UNSUCCESSFUL. ULTRASOUND IV STARTED,LEFT ARM. IV ANTIBIOTICS STARTED. BLOOD CULTURES HAVE BEEN DRAWN.
[2019-01-16] MEDS: ERTAPENEM 1 GM in SODIUM CHLORIDE 0.9% 50 ML IV SCH ×2 (14:35→14:36)
--- NOTE | 2019-01-16 14:51 | NUR ---
REPORT GIVEN TO TEJAS ROY
[2019-01-16 15:15] VITALS: BP 150/99
[2019-01-16 15:17] VITALS: BP 150/90
[2019-01-16 15:26] LABS: FREE T4 (FREE THYROXINE) 1.39 ng/dL (0.76-1.46)
[2019-01-16] MEDS: SODIUM CHLORIDE 0.9% 1,000 ML IV SCH ×2 (16:27→22:15)
[2019-01-16 19:11] VITALS: BP 144/86
[2019-01-16] MEDS ORDERED: ACETAMINOPHEN 325 MG TABLET ONE (21:45)
[2019-01-16] MEDS: ACETAMINOPHEN 325 MG TABLET PO PRN (21:50)
[2019-01-16] MEDS: ENOXAPARIN 40 MG/0.4 ML SQ SCH (21:50)
[2019-01-17 01:39] VITALS: BP 139/77
[2019-01-17 05:33] LABS: BASOPHILS # (AUTO) 0.03 x10^3/uL (0-0.1); BASOPHILS % (AUTO) 0 % (0-1); EOSINOPHILS # (AUTO) 0.35 x10^3/uL (0-0.4); EOSINOPHILS % (AUTO) 4 % (1-7); LYMPHOCYTES # (AUTO) 2.04 x10^3/uL (1-3.4); LYMPHOCYTES % (AUTO) 23 % (22-44); MD NO; MEAN CORPUSCULAR HEMOGLOBIN 27.2 pg (27.5-34.5); MEAN CORPUSCULAR VOLUME 82.5 fL (81-97); MEAN PLATELET VOLUME 7.2 fL (7.4-10.4); MONOCYTES # (AUTO) 0.65 x10^3/uL (0.2-0.8); MONOCYTES % (AUTO) 7 % (2-9); NEUTROPHILS % (AUTO) 65 % (42-75); PLATELET COUNT 372 x10^3/uL (130-400); RED BLOOD COUNT 4.53 x10^6/uL (4.38-5.82); RED CELL DISTRIBUTION WIDTH 14.9 % (9.4-14.8)
[2019-01-17 05:36] LABS: CHLORIDE 112 mmol/L (98-107)
[2019-01-17 05:52] LABS: ALANINE AMINOTRANSFERASE 35 U/L (12-78); ALKALINE PHOSPHATASE 90 U/L (45-117); ANION GAP 7 mmol/L (5-15); BILIRUBIN,TOTAL 0.3 mg/dL (0.2-1.0); CALCIUM 8.5 mg/dL (8.5-10.1); CREATININE 0.44 mg/dL (0.7-1.3); TOTAL PROTEIN 8.8 g/dL (6.4-8.2)
[2019-01-17] MEDS ORDERED: POTASSIUM CHLORIDE 20 MEQ TAB.ER.PRT PO ONE ×2 (07:00)
[2019-01-17 07:36] VITALS: BP 148/95
[2019-01-17] MEDS: PANTOPRAZOLE 40 MG IV IVPush SCH (07:39)
[2019-01-17] MEDS: SODIUM CHLORIDE 0.9% 1,000 ML IV SCH ×2 (07:54→14:49)
[2019-01-17] MEDS ORDERED: POTASSIUM CHLORIDE 20 MEQ TAB.ER.PRT ONE (11:07)
[2019-01-17] MEDS: ERTAPENEM 1 GM in SODIUM CHLORIDE 0.9% 50 ML IV SCH (14:49)
[2019-01-17 14:52] VITALS: BP 117/78
[2019-01-17 19:40] VITALS: BP 130/72
[2019-01-17] MEDS: ENOXAPARIN 40 MG/0.4 ML SQ SCH (21:49)
[2019-01-18] MEDS: SODIUM CHLORIDE 0.9% 1,000 ML IV SCH ×3 (00:40→20:03)
[2019-01-18 03:06] VITALS: BP 146/79
[2019-01-18 05:16] LABS: ALBUMIN 2.9 g/dL (3.4-5.0); ANION GAP 5 mmol/L (5-15); CALCIUM 8.1 mg/dL (8.5-10.1); CHLORIDE 115 mmol/L (98-107)
[2019-01-18 05:19] LABS: BASOPHILS # (AUTO) 0.04 x10^3/uL (0-0.1); BASOPHILS % (AUTO) 1 % (0-1); EOSINOPHILS # (AUTO) 0.47 x10^3/uL (0-0.4); EOSINOPHILS % (AUTO) 7 % (1-7); LYMPHOCYTES # (AUTO) 2.06 x10^3/uL (1-3.4); LYMPHOCYTES % (AUTO) 30 % (22-44); MD NO; MEAN CORPUSCULAR HEMOGLOBIN 27.5 pg (27.5-34.5); MEAN CORPUSCULAR HGB CONC 33.3 g/dL (33.2-36.2); MEAN CORPUSCULAR VOLUME 82.5 fL (81-97); MONOCYTES # (AUTO) 0.45 x10^3/uL (0.2-0.8); MONOCYTES % (AUTO) 7 % (2-9); NEUTROPHILS # (AUTO) 3.81 x10^3/uL (1.8-6.8); NEUTROPHILS % (AUTO) 56 % (42-75); PLATELET COUNT 376 x10^3/uL (130-400); RED BLOOD COUNT 4.36 x10^6/uL (4.38-5.82); RED CELL DISTRIBUTION WIDTH 14.9 % (9.4-14.8)
[2019-01-18 07:36] VITALS: BP 143/87
[2019-01-18] MEDS: PANTOPRAZOLE 40 MG IV IVPush SCH (07:54)
[2019-01-18] MEDS ORDERED: POLYETHYLENE GLYCOL 17 GM PACKET PO PRN (08:00)
[2019-01-18] MEDS: FLECAINIDE 50MG TABLET PO SCH ×3 (09:41→12:11)
[2019-01-18] MEDS: APIXABAN 5 MG TABLET PO SCH ×2 (09:51→20:04)
[2019-01-18] MEDS: LACTOBACILLUS CHEW TABLET PO SCH ×3 (11:42→20:03)
[2019-01-18 13:30] VITALS: BP 100/68
[2019-01-18] MEDS: ERTAPENEM 1 GM in SODIUM CHLORIDE 0.9% 50 ML IV SCH (16:32)
[2019-01-18 18:26] VITALS: BP 143/88
[2019-01-18] MEDS: ACETAMINOPHEN 325 MG TABLET PO PRN (20:04)
[2019-01-19] MEDS: FLECAINIDE 50MG TABLET PO SCH ×3 (00:37→22:29)
[2019-01-19 03:55] VITALS: BP 174/83
[2019-01-19] MEDS: SODIUM CHLORIDE 0.9% 1,000 ML IV SCH (04:52)
[2019-01-19] MEDS: LACTOBACILLUS CHEW TABLET PO SCH ×4 (04:52→20:34)
[2019-01-19 05:15] LABS: BASOPHILS # (AUTO) 0.08 x10^3/uL (0-0.1); BASOPHILS % (AUTO) 1 % (0-1); EOSINOPHILS % (AUTO) 7 % (1-7); LYMPHOCYTES # (AUTO) 1.92 x10^3/uL (1-3.4); LYMPHOCYTES % (AUTO) 29 % (22-44); MD NO; MEAN CORPUSCULAR HEMOGLOBIN 27.5 pg (27.5-34.5); MEAN CORPUSCULAR HGB CONC 33.2 g/dL (33.2-36.2); MEAN CORPUSCULAR VOLUME 82.7 fL (81-97); MEAN PLATELET VOLUME 6.9 fL (7.4-10.4); MONOCYTES # (AUTO) 0.41 x10^3/uL (0.2-0.8); MONOCYTES % (AUTO) 6 % (2-9); NEUTROPHILS # (AUTO) 3.79 x10^3/uL (1.8-6.8); NEUTROPHILS % (AUTO) 57 % (42-75); PLATELET COUNT 379 x10^3/uL (130-400); RED BLOOD COUNT 4.28 x10^6/uL (4.38-5.82); RED CELL DISTRIBUTION WIDTH 15.1 % (9.4-14.8)
[2019-01-19 05:28] LABS: ALBUMIN 2.7 g/dL (3.4-5.0); ANION GAP 6 mmol/L (5-15); CALCIUM 7.9 mg/dL (8.5-10.1); CHLORIDE 115 mmol/L (98-107)
[2019-01-19 05:32] LABS: ALANINE AMINOTRANSFERASE 34 U/L (12-78); ALKALINE PHOSPHATASE 86 U/L (45-117); BILIRUBIN,TOTAL 0.3 mg/dL (0.2-1.0); CREATININE 0.33 mg/dL (0.7-1.3)
[2019-01-19 07:29] VITALS: BP 134/84
[2019-01-19] MEDS: APIXABAN 5 MG TABLET PO SCH ×2 (08:03→20:34)
[2019-01-19] MEDS: PANTOPRAZOLE 40 MG IV IVPush SCH (08:03)
[2019-01-19 13:20] VITALS: BP 117/75
[2019-01-19] MEDS: ERTAPENEM 1 GM in SODIUM CHLORIDE 0.9% 50 ML IV SCH (14:19)
[2019-01-19 20:24] VITALS: BP 90/60
[2019-01-20 03:59] VITALS: BP 152/102
[2019-01-20 05:28] VITALS: BP 86/56
[2019-01-20] MEDS: LACTOBACILLUS CHEW TABLET PO SCH ×3 (05:33→16:16)
[2019-01-20 07:56] VITALS: BP 93/61
[2019-01-20] MEDS: APIXABAN 5 MG TABLET PO SCH (08:25)
[2019-01-20] MEDS: PANTOPRAZOLE 40 MG IV IVPush SCH (08:25)
[2019-01-20] MEDS: FLECAINIDE 50MG TABLET PO SCH (11:30)
[2019-01-20] MEDS: ERTAPENEM 1 GM in SODIUM CHLORIDE 0.9% 50 ML IV SCH (14:01)
[2019-01-20 14:22] VITALS: BP 95/58
== END 2019-01-20 16:40 | disposition home health service (06) | DRG 698 ==
LOC: ED 13:35 → EDIP 13:36 → ED 13:53 → 4NOR 15:05
PROVIDERS: ADMIT Internal Medicine; ATTEND Internal Medicine
PROC: 0T2BX0Z Change Drainage Device in Bladder, External Approach (ICD-10-PCS; principal; 2019-01-17)
PROC: 02HV33Z Insertion of Infusion Device into Superior Vena Cava, Percutaneous Approach (ICD-10-PCS; 2019-01-19)
PROC: B548ZZA Ultrasonography of Superior Vena Cava, Guidance (ICD-10-PCS; 2019-01-19)
PROC: B5181ZA Fluoroscopy of Superior Vena Cava using Low Osmolar Contrast, Guidance (ICD-10-PCS; 2019-01-19)
DX: T83.511A Infection and inflammatory reaction due to indwelling urethral catheter, initial encounter (principal); A41.9 Sepsis, unspecified organism; E43 Unspecified severe protein-calorie malnutrition; G82.50 Quadriplegia, unspecified; D68.59 Other primary thrombophilia; D64.9 Anemia, unspecified; E11.65 Type 2 diabetes mellitus with hyperglycemia; N31.9 Neuromuscular dysfunction of bladder, unspecified; N30.91 Cystitis, unspecified with hematuria; L89.229 Pressure ulcer of left hip, unspecified stage; I48.2 Chronic atrial fibrillation; I10 Essential (primary) hypertension; E87.6 Hypokalemia; Z79.01 Long term (current) use of anticoagulants; Z93.59 Other cystostomy status; Z93.2 Ileostomy status; Z93.3 Colostomy status; Z87.440 Personal history of urinary (tract) infections; Z86.19 Personal history of other infectious and parasitic diseases
CPT/HCPCS: 36415; 36573; 71045; 80048; 80053; 81001; 82040; 83605; 83735; 84100; 84145; 84439; 84443; 85025; 87040; 87077; 87086; 87184; 87186; 93005; 99285; G0378; J1335; J1650; C1751; C9113; J7030

== ENCOUNTER 2020-05-20 09:44 | Emergency (ER) | payer MEDICARE, MEDICAID ==
[~2020-05-20] VITALS: Ht 182.9 cm; Wt 95.5 kg
[~2020-05-20 09:44] MED LIST changes: +HEPA50002 SQ; +LACT10SO24 PO; -LACT10SO5 PO; +LINE600T15 PO; +MERO1PIG IVPB; +METH500T7 PO; +METO25TA91 PO
[2020-05-20] MEDS ORDERED: ONDANSETRON 2MG/ML, 2ML IVPush ONE (10:00)
[2020-05-20] MEDS ORDERED: SODIUM CHLORIDE 0.9% 1,000ML IV ONE (10:00)
[2020-05-20] MEDS ORDERED: SODIUM CHLORIDE FLUSH 10ML SYR IVF ONE (10:00)
[2020-05-20] MEDS ORDERED: ONDANSETRON 2MG/ML, 2ML ONE (10:03)
[2020-05-20 10:22] LABS: BASOPHILS # (AUTO) 0.01 x10^3/uL (0-0.1); BASOPHILS % (AUTO) 0 % (0-1); EOSINOPHILS # (AUTO) 0.26 x10^3/uL (0-0.4); EOSINOPHILS % (AUTO) 4 % (1-7); LYMPHOCYTES % (AUTO) 30 % (22-44); MD NO; MEAN CORPUSCULAR HGB CONC 32.8 g/dL (33.2-36.2); MEAN CORPUSCULAR VOLUME 82.2 fL (81-97); MEAN PLATELET VOLUME 7.4 fL (7.4-10.4); MONOCYTES # (AUTO) 0.39 x10^3/uL (0.2-0.8); MONOCYTES % (AUTO) 6 % (2-9); NEUTROPHILS # (AUTO) 3.83 x10^3/uL (1.8-6.8); NEUTROPHILS % (AUTO) 60 % (42-75); PLATELET COUNT 263 x10^3/uL (130-400); RED CELL DISTRIBUTION WIDTH 15.7 % (9.4-14.8)
[2020-05-20 10:31] LABS: ALANINE AMINOTRANSFERASE 25 U/L (12-78); ALBUMIN 3.6 g/dL (3.4-5.0); ANION GAP 9 mmol/L (5-15); CALCIUM 8.5 mg/dL (8.5-10.1); CHLORIDE 109 mmol/L (98-107); CREATININE 0.49 mg/dL (0.7-1.3)
[2020-05-20 10:34] LABS: ALKALINE PHOSPHATASE 96 U/L (45-117); BILIRUBIN,TOTAL 0.6 mg/dL (0.2-1.0); TOTAL PROTEIN 9.2 g/dL (6.4-8.2); TROPONIN I < 0.015 ng/mL (0.000-0.045)
[2020-05-20 11:03] LABS: MICROSCOPIC AUTO
[2020-05-20] MEDS ORDERED: CEFDINIR 300 MG CAPSULE ONE (11:46)
[2020-05-20] MEDS ORDERED: FOSFOMYCIN 3 GM PACKET ONE (11:47)
[2020-05-20] MEDS ORDERED: CEFDINIR 300 MG CAPSULE PO ONE (12:00)
[2020-05-20] MEDS ORDERED: FOSFOMYCIN 3 GM PACKET PO ONE (12:00)
[2020-05-20 12:24] VITALS: BP 135/84
[2020-05-23] MEDS ORDERED: CEFD300C37 PO (17:41)
== END 2020-05-20 14:16 | disposition home or self-care (01) ==
LOC: ED 10:00
DX: G90.4 Autonomic dysreflexia (principal); N30.00 Acute cystitis without hematuria; F41.9 Anxiety disorder, unspecified; R42 Dizziness and giddiness; I10 Essential (primary) hypertension; R11.0 Nausea; E11.9 Type 2 diabetes mellitus without complications; I48.91 Unspecified atrial fibrillation
CPT/HCPCS: 36415; 70450; 71045; 74176; 80053; 81001; 84484; 85025; 87086; 93005; 96361; 96374; 99285; J2405; J7030; 87077; 87186; 96372

== ENCOUNTER → 2021-03-04 | Outpatient (CLI) | payer MEDICARE, MEDICAID ==
[~2021-03-04] MED LIST changes: -ASPI-515 PO; +ASPI-963 PO; +MECL-101 PO; +MERO1VIA22 IV; +METH-639 PO; -METH500T7 PO; +MIDO5TAB9 PO; -OXYC-302 PO; +OXYC1TAB14 PO
[2021-03-04 10:21] LABS: BASOPHILS % (AUTO) 0 % (0-1); EOSINOPHILS % (AUTO) 5 % (1-7); LYMPHOCYTES % (AUTO) 21 % (22-44); MEAN CORPUSCULAR HEMOGLOBIN 27.1 pg (27.5-34.5); MEAN CORPUSCULAR HGB CONC 33.4 g/dL (33.2-36.2); MEAN PLATELET VOLUME 6.5 fL (7.4-10.4); MONOCYTES % (AUTO) 8 % (2-9); NEUTROPHILS % (AUTO) 66 % (42-75); PLATELET COUNT 357 x10^3/uL (130-400); RED BLOOD COUNT 3.59 x10^6/uL (4.38-5.82); RED CELL DISTRIBUTION WIDTH 15.9 % (9.4-14.8)
[2021-03-04 10:23] LABS: MD NO
[2021-03-04 10:31] LABS: ALANINE AMINOTRANSFERASE 15 U/L (12-78); ALBUMIN 3.5 g/dL (3.4-5.0); ANION GAP 8 mmol/L (5-15); CALCIUM 8.5 mg/dL (8.5-10.1); CHLORIDE 104 mmol/L (98-107)
[2021-03-04 10:33] LABS: ALKALINE PHOSPHATASE 86 U/L (45-117); BILIRUBIN,TOTAL 0.5 mg/dL (0.2-1.0); CHOL/HDL RATIO 3.8; CHOLESTEROL, TOTAL 136 mg/dL (140-239); CREATININE 0.42 mg/dL (0.7-1.3); HDL CHOL % 26 % (26-37); HDL CHOLESTEROL (DIRECT) 36 mg/dL (40-60); LDL CHOLESTEROL,CALCULATED 69 mg/dL (54-169); LDL/HDL RATIO 1.9 (0.5-3.0); TOTAL PROTEIN 8.6 g/dL (6.4-8.2); TRIGLYCERIDES 157 mg/dL (50-200); VLDL CHOLESTEROL 31 mg/dL (0-25)
== END | disposition home or self-care (01) ==
LOC: LAB 09:54
PROVIDERS: ATTEND Internal Medicine Cardiovascular Disease
DX: Z51.81 Encounter for therapeutic drug level monitoring (principal); I10 Essential (primary) hypertension; E11.8 Type 2 diabetes mellitus with unspecified complications; I48.0 Paroxysmal atrial fibrillation; I48.92 Unspecified atrial flutter; Z79.01 Long term (current) use of anticoagulants
CPT/HCPCS: 36415; 80053; 80061; 83036; 85025

== ENCOUNTER 2021-07-15 13:24 | Inpatient (IN) | payer MEDICARE, MEDICAID ==
[~2021-07-15] VITALS: Ht 182.9 cm; Wt 100.9 kg
[~2021-07-15 13:24] MED LIST changes: -VANC1VIA3 IV; +VANC1VIA36 IV
--- NOTE | 2021-07-15 13:48 | NUR ---
PT ARRIVES TO ED WITH GENERIC C/O "NOT FEELING WELL, NAUSEA" AND LOWER THAN NORMAL BP. PER PT, TYPICAL SYSTOLIC BP FOR SELF IS "UPPER 90'S" FOUND TO BE 91/45 WHEN PT ARRIVED TO ED ROOM 37. PT REQUESTING TO STAY IN HIS OWN WHEELCHAIR AT THIS TIME AND TO NOT TRANSFER TO THE ED [facility]. ED MD TIDWELL AT BEDSIDE FOR EVAL. PT HAS CONTINUOUS SPO2 MONITORING AND BP Q30MIN IN PLACE. AWAITING FURTHER ORDERS. CALL LIGHT W/IN REACH. PT INSTRUCTED ON USE, VERBALIZED UNDERSTANDING.
--- NOTE | 2021-07-15 13:51 | NUR ---
PT ARRIVED TO ED WITH SUPRAPUBIC CATH IN PLACE. BAG FOR CATHETER NOT TRANSPARENT, UNABLE TO VISUALIZE URINE APPEARANCE.
[2021-07-15] MEDS ORDERED: SODIUM CHLORIDE 0.9% 1,000ML IVBOLUS ONE (14:00)
[2021-07-15] MEDS ORDERED: SODIUM CHLORIDE FLUSH 10ML SYR IVF ONE (14:00)
--- NOTE | 2021-07-15 14:07 | NUR ---
BEDSIDE REPORT TO MANUELA PICKETT.
--- NOTE | 2021-07-15 14:47 | NUR ---
TASK RN: BLOOD CULTURES X2 DRAWN IN STERILE FASHION FROM 2 VENIPUNCTURES, FULL SET OF LABS INCLUDING LACTATE DRAWN WELL PATIENT MEDICATED PER EMAR WITH 1L NS
--- NOTE | 2021-07-15 14:49 | NUR ---
TASK RN: SAMPLE OF URINE FROM URIMETER TUBING DRAWN-SENT TO LAB
[2021-07-15 15:20] LABS: BASOPHILS % (AUTO) 0 % (0-1); EOSINOPHILS % (AUTO) 4 % (1-7); LYMPHOCYTES % (AUTO) 20 % (22-44); MEAN CORPUSCULAR HEMOGLOBIN 25.7 pg (27.5-34.5); MEAN CORPUSCULAR HGB CONC 32.9 g/dL (33.2-36.2); MONOCYTES % (AUTO) 6 % (2-9); NEUTROPHILS % (AUTO) 70 % (42-75); PLATELET COUNT 300 x10^3/uL (130-400); RED BLOOD COUNT 4.67 x10^6/uL (4.38-5.82)
[2021-07-15 15:28] LABS: ALBUMIN 3.2 g/dL (3.4-5.0); ANION GAP 0 mmol/L (5-15); CALCIUM 8.4 mg/dL (8.5-10.1); CHLORIDE 104 mmol/L (98-107); CREATININE 0.47 mg/dL (0.7-1.3)
[2021-07-15 15:30] LABS: MICROSCOPIC INDICATED
[2021-07-15] MEDS ORDERED: ENALAPRILAT 1.25 MG/ML, 2ML IVPush PRN (17:30)
[2021-07-15] MEDS ORDERED: MECLIZINE 25 MG TABLET PO PRN (17:30)
[2021-07-15] MEDS ORDERED: HEPARIN 5,000 UNITS/ML, 1ML SQ SCH (17:30)
[2021-07-15] MEDS ORDERED: ONDANSETRON 2MG/ML, 2ML IVPush PRN (17:30)
--- NOTE | 2021-07-15 17:53 | NUR ---
Pt sleeping intermittently.
[2021-07-15] MEDS ORDERED: MEROPENEM 1 GM in SODIUM CHLORIDE 0.9% 100 ML IV SCH (19:30)
[2021-07-15] MEDS: SODIUM CHLORIDE 0.9% 1,000 ML IV SCH (19:48)
[2021-07-15 19:50] VITALS: BP 140/81
[2021-07-15] MEDS ORDERED: METO25TA4 PO (20:25)
[2021-07-15] MEDS: APIXABAN 5 MG TABLET PO SCH (21:02)
[2021-07-15] MEDS: FLECAINIDE 50MG TABLET PO SCH (21:03)
[2021-07-16 00:30] VITALS: BP 125/76
[2021-07-16] MEDS: SODIUM CHLORIDE 0.9% 1,000 ML IV SCH ×2 (04:50→15:20)
[2021-07-16 05:43] LABS: BASOPHILS % (AUTO) 0 % (0-1); EOSINOPHILS % (AUTO) 6 % (1-7); LYMPHOCYTES % (AUTO) 27 % (22-44); MEAN CORPUSCULAR HEMOGLOBIN 25.1 pg (27.5-34.5); MEAN CORPUSCULAR HGB CONC 32.3 g/dL (33.2-36.2); MEAN PLATELET VOLUME 7.1 fL (7.4-10.4); MONOCYTES % (AUTO) 6 % (2-9); NEUTROPHILS % (AUTO) 62 % (42-75); PLATELET COUNT 256 x10^3/uL (130-400); RED BLOOD COUNT 4.32 x10^6/uL (4.38-5.82); RED CELL DISTRIBUTION WIDTH 19.7 % (9.4-14.8)
[2021-07-16 05:48] LABS: CHLORIDE 109 mmol/L (98-107)
[2021-07-16 06:07] LABS: ALANINE AMINOTRANSFERASE 21 U/L (12-78); ALBUMIN 2.9 g/dL (3.4-5.0); ALKALINE PHOSPHATASE 76 U/L (45-117); ANION GAP 6 mmol/L (5-15); BILIRUBIN,TOTAL 0.4 mg/dL (0.2-1.0); CREATININE 0.23 mg/dL (0.7-1.3); TOTAL PROTEIN 7.6 g/dL (6.4-8.2)
[2021-07-16 06:57] VITALS: BP 126/77
[2021-07-16] MEDS: METOPROLOL TARTRATE 25 MG TAB PO SCH (10:24)
[2021-07-16] MEDS: FLECAINIDE 50MG TABLET PO SCH ×2 (10:25→20:53)
[2021-07-16] MEDS: APIXABAN 5 MG TABLET PO SCH ×2 (10:25→20:54)
[2021-07-16 12:13] VITALS: BP 93/57
[2021-07-16 12:14] VITALS: BP 94/55
[2021-07-16] MEDS: TIZANIDINE 4MG TABLET PO SCH ×2 (14:02→21:30)
[2021-07-16] MEDS: ACETAMINOPHEN 325 MG TABLET PO PRN (14:14)
[2021-07-16] MEDS: MEROPENEM 1 GM in SODIUM CHLORIDE 0.9% 100 ML IV SCH (17:56)
[2021-07-16 20:14] VITALS: BP 139/83
[2021-07-17 00:40] VITALS: BP 131/85
[2021-07-17] MEDS: MEROPENEM 1 GM in SODIUM CHLORIDE 0.9% 100 ML IV SCH ×3 (01:50→17:20)
[2021-07-17] MEDS: TIZANIDINE 4MG TABLET PO SCH (05:30)
[2021-07-17] MEDS: SODIUM CHLORIDE 0.9% 1,000 ML IV SCH (05:31)
[2021-07-17 06:20] LABS: BASOPHILS % (AUTO) 0 % (0-1); EOSINOPHILS % (AUTO) 6 % (1-7); LYMPHOCYTES % (AUTO) 29 % (22-44); MEAN CORPUSCULAR HEMOGLOBIN 25.9 pg (27.5-34.5); MEAN PLATELET VOLUME 6.9 fL (7.4-10.4); MONOCYTES % (AUTO) 7 % (2-9); NEUTROPHILS % (AUTO) 58 % (42-75); PLATELET COUNT 271 x10^3/uL (130-400); RED CELL DISTRIBUTION WIDTH 19.5 % (9.4-14.8)
[2021-07-17 07:27] VITALS: BP 170/100
[2021-07-17] MEDS: APIXABAN 5 MG TABLET PO SCH ×2 (09:13→20:07)
[2021-07-17] MEDS: METOPROLOL TARTRATE 25 MG TAB PO SCH (09:13)
[2021-07-17] MEDS: FLECAINIDE 50MG TABLET PO SCH ×2 (09:13→20:07)
[2021-07-17] MEDS: TIZANIDINE 2MG TABLET PO SCH ×2 (10:16→17:19)
[2021-07-17] MEDS: ACETAMINOPHEN 325 MG TABLET PO PRN ×2 (10:18→22:30)
[2021-07-17] MEDS ORDERED: TIZANIDINE 2MG TABLET PO SCH (13:30)
[2021-07-17 13:44] VITALS: BP 94/62
[2021-07-17 20:07] VITALS: BP 143/87
[2021-07-18 00:02] VITALS: BP 109/73
[2021-07-18] MEDS: TIZANIDINE 2MG TABLET PO SCH ×4 (01:36→17:17)
[2021-07-18] MEDS: MEROPENEM 1 GM in SODIUM CHLORIDE 0.9% 100 ML IV SCH ×3 (01:36→17:17)
[2021-07-18 06:10] LABS: BASOPHILS % (AUTO) 0 % (0-1); EOSINOPHILS % (AUTO) 6 % (1-7); LYMPHOCYTES % (AUTO) 28 % (22-44); MEAN CORPUSCULAR HEMOGLOBIN 25.8 pg (27.5-34.5); MEAN PLATELET VOLUME 6.9 fL (7.4-10.4); MONOCYTES % (AUTO) 7 % (2-9); NEUTROPHILS % (AUTO) 59 % (42-75); PLATELET COUNT 271 x10^3/uL (130-400); RED BLOOD COUNT 4.28 x10^6/uL (4.38-5.82); RED CELL DISTRIBUTION WIDTH 19.9 % (9.4-14.8)
[2021-07-18 06:36] LABS: ANION GAP 6 mmol/L (5-15); CALCIUM 8.4 mg/dL (8.5-10.1); CHLORIDE 113 mmol/L (98-107); CREATININE 0.31 mg/dL (0.7-1.3)
[2021-07-18 08:25] VITALS: BP 121/85
[2021-07-18] MEDS: METOPROLOL TARTRATE 25 MG TAB PO SCH (09:26)
[2021-07-18] MEDS: FLECAINIDE 50MG TABLET PO SCH ×2 (09:26→20:57)
[2021-07-18] MEDS: APIXABAN 5 MG TABLET PO SCH ×2 (09:26→20:57)
[2021-07-18] MEDS ORDERED: PIPERACILLIN/TAZO 3.375 GM in DEXTROSE 5% 50 ML IV SCH (10:00)
[2021-07-18] MEDS ORDERED: CEFTRIAXONE 1,000 MG in DEXTROSE 5% 50 ML IVPB SCH (10:00)
[2021-07-18 13:29] VITALS: BP 109/74
[2021-07-18 21:01] VITALS: BP 156/95
[2021-07-18] MEDS: ACETAMINOPHEN 325 MG TABLET PO PRN (23:17)
[2021-07-19] MEDS: TIZANIDINE 2MG TABLET PO SCH ×2 (01:29→09:25)
[2021-07-19] MEDS: MEROPENEM 1 GM in SODIUM CHLORIDE 0.9% 100 ML IV SCH ×3 (01:30→17:04)
[2021-07-19 02:12] VITALS: BP 132/84
[2021-07-19 05:32] LABS: BASOPHILS % (AUTO) 0 % (0-1); EOSINOPHILS % (AUTO) 6 % (1-7); LYMPHOCYTES % (AUTO) 25 % (22-44); MEAN CORPUSCULAR HEMOGLOBIN 25.9 pg (27.5-34.5); MEAN CORPUSCULAR HGB CONC 33.4 g/dL (33.2-36.2); MEAN PLATELET VOLUME 6.9 fL (7.4-10.4); MONOCYTES % (AUTO) 7 % (2-9); NEUTROPHILS % (AUTO) 63 % (42-75); PLATELET COUNT 280 x10^3/uL (130-400); RED BLOOD COUNT 4.32 x10^6/uL (4.38-5.82); RED CELL DISTRIBUTION WIDTH 19.6 % (9.4-14.8)
[2021-07-19 05:39] LABS: ANION GAP 6 mmol/L (5-15); CALCIUM 8.2 mg/dL (8.5-10.1); CHLORIDE 113 mmol/L (98-107)
[2021-07-19 05:40] LABS: CREATININE 0.31 mg/dL (0.7-1.3)
[2021-07-19 07:48] VITALS: BP 165/78
[2021-07-19] MEDS: ACETAMINOPHEN 325 MG TABLET PO PRN ×2 (09:24→22:43)
[2021-07-19] MEDS: APIXABAN 5 MG TABLET PO SCH ×2 (09:24→19:46)
[2021-07-19] MEDS: FLECAINIDE 50MG TABLET PO SCH ×2 (09:25→19:46)
[2021-07-19] MEDS: METOPROLOL TARTRATE 25 MG TAB PO SCH (09:25)
[2021-07-19 12:02] VITALS: BP 143/86
[2021-07-19] MEDS ORDERED: TIZANIDINE 2MG TABLET PO SCH (14:00)
[2021-07-19] MEDS: TIZANIDINE 2MG TABLET PO PRN ×2 (17:04→22:49)
[2021-07-19 18:23] VITALS: BP 139/85
[2021-07-20 00:03] VITALS: BP 138/70
[2021-07-20] MEDS: MEROPENEM 1 GM in SODIUM CHLORIDE 0.9% 100 ML IV SCH ×3 (02:23→17:13)
[2021-07-20 06:28] VITALS: BP 171/85
[2021-07-20] MEDS: METOPROLOL TARTRATE 25 MG TAB PO SCH (09:07)
[2021-07-20] MEDS: FLECAINIDE 50MG TABLET PO SCH ×2 (09:07→20:08)
[2021-07-20] MEDS: APIXABAN 5 MG TABLET PO SCH ×2 (09:07→20:08)
[2021-07-20 09:13] VITALS: BP 111/77
[2021-07-20] MEDS: ACETAMINOPHEN 325 MG TABLET PO PRN (11:41)
[2021-07-20 12:48] VITALS: BP 101/67
[2021-07-20 19:16] VITALS: BP 116/75
[2021-07-20] MEDS: TIZANIDINE 2MG TABLET PO PRN (22:03)
[2021-07-21] MEDS: MEROPENEM 1 GM in SODIUM CHLORIDE 0.9% 100 ML IV SCH ×3 (02:01→18:28)
[2021-07-21 02:07] VITALS: BP 117/79
[2021-07-21] MEDS: ACETAMINOPHEN 325 MG TABLET PO PRN ×2 (05:22→21:31)
[2021-07-21 09:15] VITALS: BP 93/61
[2021-07-21] MEDS: METOPROLOL TARTRATE 25 MG TAB PO SCH (09:23)
[2021-07-21] MEDS: FLECAINIDE 50MG TABLET PO SCH ×2 (09:23→21:31)
[2021-07-21] MEDS: APIXABAN 5 MG TABLET PO SCH ×2 (09:23→21:30)
[2021-07-21 12:53] VITALS: BP 95/60
[2021-07-21 18:58] VITALS: BP 121/78
[2021-07-22 00:26] VITALS: BP 135/85
[2021-07-22] MEDS: MEROPENEM 1 GM in SODIUM CHLORIDE 0.9% 100 ML IV SCH ×4 (01:33→15:09)
[2021-07-22 07:00] VITALS: BP 130/86
[2021-07-22 08:17] LABS: BASOPHILS % (AUTO) 1 % (0-1); EOSINOPHILS % (AUTO) 7 % (1-7); LYMPHOCYTES % (AUTO) 32 % (22-44); MEAN CORPUSCULAR HEMOGLOBIN 25.3 pg (27.5-34.5); MEAN CORPUSCULAR HGB CONC 32.6 g/dL (33.2-36.2); MEAN PLATELET VOLUME 6.8 fL (7.4-10.4); MONOCYTES % (AUTO) 6 % (2-9); NEUTROPHILS % (AUTO) 53 % (42-75); PLATELET COUNT 306 x10^3/uL (130-400); RED BLOOD COUNT 4.65 x10^6/uL (4.38-5.82); RED CELL DISTRIBUTION WIDTH 19.7 % (9.4-14.8)
[2021-07-22 08:22] LABS: ANION GAP 7 mmol/L (5-15); CALCIUM 8.3 mg/dL (8.5-10.1); CHLORIDE 108 mmol/L (98-107); CREATININE 0.28 mg/dL (0.7-1.3)
[2021-07-22] MEDS: APIXABAN 5 MG TABLET PO SCH (08:56)
[2021-07-22] MEDS: FLECAINIDE 50MG TABLET PO SCH (08:56)
[2021-07-22] MEDS ORDERED: METOPROLOL TARTRATE 25 MG TAB PO SCH (09:00)
[2021-07-22 15:01] VITALS: BP 126/85
== END 2021-07-22 15:50 | disposition home or self-care (01) | DRG 698 ==
LOC: ED 13:54 → SUATTDRO 16:55 → EDIP 17:34 → 4NW 18:58 → 3N 07-16 20:02
PROVIDERS: ADMIT Hospitalist; ATTEND Hospitalist
PROC: 0T9B70Z Drainage of Bladder with Drainage Device, Via Natural or Artificial Opening (ICD-10-PCS; 2021-07-15)
PROC: 0T2BX0Z Change Drainage Device in Bladder, External Approach (ICD-10-PCS; principal; 2021-07-19)
DX: T83.518A Infection and inflammatory reaction due to other urinary catheter, initial encounter (principal); A41.9 Sepsis, unspecified organism; L89.94 Pressure ulcer of unspecified site, stage 4; G82.52 Quadriplegia, C1-C4 incomplete; E87.1 Hypo-osmolality and hyponatremia; K59.2 Neurogenic bowel, not elsewhere classified; N30.01 Acute cystitis with hematuria; I95.9 Hypotension, unspecified; I48.91 Unspecified atrial fibrillation; B96.4 Proteus (mirabilis) (morganii) as the cause of diseases classified elsewhere; B96.5 Pseudomonas (aeruginosa) (mallei) (pseudomallei) as the cause of diseases classified elsewhere; D64.9 Anemia, unspecified; E11.9 Type 2 diabetes mellitus without complications; I11.9 Hypertensive heart disease without heart failure; M62.838 Other muscle spasm; R53.81 Other malaise; N31.9 Neuromuscular dysfunction of bladder, unspecified; I10 Essential (primary) hypertension; Y84.6 Urinary catheterization as the cause of abnormal reaction of the patient, or of later complication, without mention of misadventure at the time of the procedure; Z93.2 Ileostomy status; Z93.3 Colostomy status; Z99.3 Dependence on wheelchair; Z90.49 Acquired absence of other specified parts of digestive tract; Z88.0 Allergy status to penicillin
CPT/HCPCS: 36415; 71045; 80048; 80053; 81001; 82040; 82962; 83605; 83735; 84100; 84145; 85025; 87040; 87077; 87086; 87186; 93005; 96374; 96375; G0378; J2185; J7030